=== PATIENT | male | born 1995 | race Caucasian/White ===

== ENCOUNTER 2017-04-28 09:33 | Emergency (ER) | payer OTHER ==
[2017-04-28] MEDS: ACETAMINOPHEN 325 MG TAB PO (10:20)
[2017-04-28] MEDS: CEPHALEXIN 500 MG CAP PO (10:20)
== END 2017-04-28 10:28 | disposition home or self-care (01) ==
LOC: M ED 09:33
DX: T33.831A Superficial frostbite of right toe(s), initial encounter (principal); T33.832A Superficial frostbite of left toe(s), initial encounter; Y92.821 Forest as the place of occurrence of the external cause; Y93.31 Activity, mountain climbing, rock climbing and wall climbing
CPT/HCPCS: 99282